=== PATIENT | male | born 1960 | race Caucasian/White ===

== ENCOUNTER → 2016-04-21 | Outpatient (CLI) | payer OTHER ==
[~2016-04-21] MED LIST: ALPH100C8 PO; ALPHTAB9 PO; ANTIOXIDANT FORMULA PO; B-CO1CAP17 PO; BORA500C PO; CO Q 10 PO; FLAXOIL2 PO; GLUC500C4 PO; MAGN200T4 PO; MULT-845 PO; OMEGA 3 PO; ROYA1CAP2 PO; VITAMIN C PO; WARF-237 PO; WARF7.5T4 PO; [UNRECOGNIZED DRUG - OTHER] PO
--- NOTE | 2016-04-21 15:42 | DIAGNOSTIC IMAGING REPORT ---
ADDENDUM Addendum: Request was made to common on the biceps tendon. This examination was not protocoled for biceps evaluation. There is a slight thinning of the distal biceps tendon. There are no findings to indicate a full-thickness tear. There is no pathologic insertional edema. Electronically signed by: Terrence Jimenez M.D. 04/22/2016 10:41 AM Dictated Date/Time: 04/22/2016 10:40 AM ORIGINAL REPORT MRI THE LEFT ELBOW NO CONTRAST CLINICAL HISTORY: Left elbow pain. Trauma. COMPARISON STUDY: No previous studies for comparison. FINDINGS: Imaging was performed in sagittal, coronal, and axial planes. There are no areas of marrow edema to indicate occult fracture or bone bruise. The bicipital tendon appears intact. There is posterior medial soft tissue edema. The radial and ulnar collateral ligaments appear intact. There is very minor tendinopathy involving the common extensor tendon and common flexor tendon. There is no pathologic intramuscular edema IMPRESSION: 1. No MRI evidence of muscle tear 2. No evidence of occult fracture 3. No evidence of radial or ulnar collateral ligament disruption 4. Very minimal tendinopathy involving the common extensor tendon and common flexor tendons 5. Mild posterior medial soft tissue edema Electronically signed by: Terrence Jimenez M.D. 04/21/2016 3:41 PM Dictated Date/Time: 04/21/2016 3:31 PM
== END | disposition home or self-care (01) ==
LOC: C.MRI 14:33
PROVIDERS: ATTEND Physical Medicine & Rehabilitation Sports Medicine
DX: M25.522 Pain in left elbow (principal)

== ENCOUNTER → 2016-05-25 | Outpatient (CLI) | payer OTHER | END | disposition home or self-care (01) | LOC: C.RDSM 16:09 | PROVIDERS: ATTEND Physical Medicine & Rehabilitation Sports Medicine | DX: M25.522 Pain in left elbow (principal); M25.562 Pain in left knee ==